=== PATIENT | male | born 1975 | race Caucasian/White ===

== ENCOUNTER → 2016-10-06 | Outpatient (CLI) | payer OTHER ==
--- NOTE | 2016-10-06 15:23 | REP ---
MRI BRAIN WITHOUT AND WITH CONTRAST: HISTORY: Hypogonadism. CONTRAST: ProHance 13 mL. Areas of increased signal intensity on T2-weighted images are present in the periventricular and subcortical white matter. This represents small vessel ischemic disease. There is no intraparenchymal hemorrhage, infarct, mass or midline shift. The ventricular system is normal in appearance. There is no extracerebral collection. The pituitary gland is normal in size and signal intensity. The pituitary gland measures 6.7 mm in height. There is homogeneous enhancement with contrast. The infundibulum is midline. The cavernous sinuses, optic chiasm and hypothalamus are normal in appearance. The visualized sinuses are clear. IMPRESSION: Small vessel ischemic disease. Signed by Gonzalez Perez MD 10/06/2016 03:24 P
== END ==
LOC: M RAD 12:43
PROVIDERS: ATTEND Internal Medicine
DX: E29.1 Testicular hypofunction (principal); I73.9 Peripheral vascular disease, unspecified
CPT/HCPCS: 70553; A9576

== ENCOUNTER → 2021-02-05 | Outpatient (CLI) | payer OTHER ==
--- NOTE | 2021-02-05 16:23 | REPVR ---
PROCEDURE INFORMATION: Exam: MR Thoracic Spine Without Contrast Exam date and time: 02/05/2021 8:30 AM Age: 45 years old Clinical indication: Condition or disease; Disc degneration; Thoracic; Without myelopathy or radiculopathy; Additional info: Ddd TECHNIQUE: Imaging protocol: Multiplanar magnetic resonance images of the thoracic spine without contrast. COMPARISON: No relevant prior studies available. FINDINGS: Vertebrae: No acute abnormality. Alignment is anatomic. Spinal cord: Normal signal. No cord compression. Discs/Spinal canal/Neural foramina: Moderate degenerative changes of the thoracic spine are present. There is no significant spinal canal stenosis. Mild spinal canal stenosis is present at T5-6 and T6-7. Soft tissues: Unremarkable. IMPRESSION: 1. No acute abnormality. 2. Chronic findings as discussed above. Electronically signed by: Jose Alcocer On 02/05/2021 16:22:42 PM
--- NOTE | 2021-02-05 16:28 | REPVR ---
PROCEDURE INFORMATION: Exam: MR Lumbar Spine Without Contrast Exam date and time: 02/05/2021 8:30 AM Age: 45 years old Clinical indication: Lumbago and sciatica; Bilateral; Additional info: Ddd thoracic/lumbar lumbago w/ sciaticia TECHNIQUE: Imaging protocol: Multiplanar magnetic resonance images of the lumbar spine without intravenous contrast. COMPARISON: No relevant prior studies available. FINDINGS: Vertebrae: No acute compression fracture is seen. Bone marrow signal is within normal limits. Spinal cord: The conus medullaris terminates at the inferior L1 level. There is no evidence of arachnoiditis or cauda equina compression. L1-L2: No significant disc disease. No significant spinal stenosis or neural foraminal narrowing. L2-L3: No significant disc disease. No significant spinal stenosis or neural foraminal narrowing. L3-L4: There is shallow broad-based disc bulging and osteophytic ridging in the right neural foramina, right extraforaminal region, and far right lateral space. Similar but less pronounced findings are noted on the left side. There is no significant spinal canal stenosis. Moderate right and mild left neural foraminal narrowing is present. L4-L5: There is mild diffuse circumferential disc bulging and facet arthropathy. This is causing mild/moderate bilateral neural foraminal narrowing. There is no significant spinal canal stenosis. L5-S1: There is moderate diffuse circumferential disc bulging with a left subarticular annular fissure. Moderate facet arthropathy is also present. There is no spinal canal stenosis. Mild bilateral neural foraminal narrowing is present. Soft tissues: Unremarkable. IMPRESSION: 1. No acute abnormality. 2. Chronic findings as discussed above. Electronically signed by: Jose Alcocer On 02/05/2021 16:28:14 PM
== END ==
LOC: M RAD 06:29
PROVIDERS: ATTEND Internal Medicine
DX: M48.04 Spinal stenosis, thoracic region (principal); M54.40 Lumbago with sciatica, unspecified side

== ENCOUNTER → 2023-02-03 | Outpatient (CLI) | payer OTHER | LOC: M PLAIMG 09:06 | PROVIDERS: ATTEND Family Medicine | DX: Z53.9 Procedure and treatment not carried out, unspecified reason (principal); M54.6 Pain in thoracic spine; M54.50 Low back pain, unspecified ==

== ENCOUNTER → 2023-02-06 | Outpatient (CLI) | payer OTHER ==
[2023-02-06 07:56] LABS: BASO % 0.5 % (0.0-1.0); EOS # 0.1 10^3/uL (0.0-0.5); EOS % 1.9 % (0.0-3.0); HEMATOCRIT 50.2 % (42.0-52.0); HEMOGLOBIN 16.8 g/dl (13.5-17.5); LYMPH # 1.8 10^3/uL (1.5-5.0); LYMPH % 30.6 % (24.0-44.0); MEAN CORPUSCULAR HEMOGLOBIN 30.3 pg (27.0-33.0); MEAN CORPUSCULAR HGB CONC 33.5 g/dl (32.0-36.5); MEAN CORPUSCULAR VOLUME 90.5 fl (80.0-96.0); MONO # 0.6 10^3/uL (0.0-0.8); MONO % 9.7 % (2.0-8.0); NEUTROPHILS # 3.3 10^3/uL (1.5-8.5); PLATELET COUNT, AUTOMATED 159 10^3/uL (150-450); RED BLOOD COUNT 5.55 10^6/uL (4.30-6.10); WHITE BLOOD COUNT 5.8 10^3/uL (4.0-10.0)
[2023-02-06 08:15] LABS: ALBUMIN 3.9 G/DL (3.2-5.2); ALKALINE PHOSPHATASE 111 U/L (46-116); ALT/SGPT 44 U/L (7.0-40); AST/SGOT 26 U/L (<34); BILIRUBIN,TOTAL 0.5 MG/DL (0.3-1.2); BLOOD UREA NITROGEN 10 MG/DL (9-23); CALCIUM LEVEL 8.8 MG/DL (8.5-10.1); CARBON DIOXIDE LEVEL 26 MMOL/L (20-31); CHLORIDE LEVEL 108 MMOL/L (98-107); CHOLESTEROL LEVEL 165 MG/DL (<200); CHOLESTEROL RISK RATIO 3.77 (<5); CREATININE FOR GFR 0.95 MG/DL (0.70-1.30); GLOMERULAR FILTRATION RATE > 60.0 (>60); GLUCOSE, FASTING 119 MG/DL (60-100); HDL CHOLESTEROL 43.7 MG/DL (>40); LDL CHOLESTEROL 94.7 MG/DL (<100); NON-HDL-C 121.3 MG/DL; POTASSIUM SERUM 3.9 MMOL/L (3.5-5.1); SODIUM LEVEL 141 MMOL/L (136-145); THYROID STIMULATING HORMONE 1.933 uIU/ML (0.55-4.78); TRIGLYCERIDES LEVEL 133 MG/DL (<150)
[2023-02-06 08:16] LABS: FREE T4 0.77 NG/DL (0.89-1.76); TOTAL 25(OH) VITAMIN D 33.1 NG/ML (20.0-100.0)
[2023-02-06 09:27] LABS: HEMOGLOBIN A1c 5.6 % (4.0-6.0)
== END ==
LOC: M LAB 07:12
PROVIDERS: ATTEND Family Medicine
DX: Z13.220 Encounter for screening for lipoid disorders (principal); Z13.29 Encounter for screening for other suspected endocrine disorder; Z13.0 Encounter for screening for diseases of the blood and blood-forming organs and certain disorders involving the immune mechanism; R73.9 Hyperglycemia, unspecified; E55.9 Vitamin D deficiency, unspecified

== ENCOUNTER → 2023-12-18 | Outpatient (CLI) | payer OTHER ==
[~2023-12-18] MED LIST: JARD1TAB3 PO; ROSU20TA61 PO; SERT-141 PO; TEST200I14 IM; TOPR50TA PO
== END ==
LOC: M RAD 15:59
PROVIDERS: ATTEND Physician Assistant
DX: N50.82 Scrotal pain (principal); I86.1 Scrotal varices; N43.3 Hydrocele, unspecified

== ENCOUNTER → 2024-02-15 | Outpatient (REF) | payer OTHER | LOC: M LAB REF 13:25 | PROVIDERS: ATTEND Physician Assistant | DX: R19.7 Diarrhea, unspecified (principal) ==

== ENCOUNTER → 2024-07-19 | Outpatient (CLI) | payer OTHER ==
[~2024-07-19] MED LIST changes: -ROSU20TA61 PO; +ROSU20TA86 PO
== END ==
LOC: M PLAIMG 10:02
PROVIDERS: ATTEND Physician Assistant
DX: R31.9 Hematuria, unspecified (principal); N20.0 Calculus of kidney

== ENCOUNTER → 2024-08-25 | Outpatient (REF) | payer OTHER ==
[2024-08-25 18:02] LABS: APPEARANCE, URINE HAZY (CLEAR); BACTERIA, URINE AUTO NEGATIVE (NEGATIVE); BILIRUBIN, URINE AUTO NEGATIVE (NEGATIVE); BLOOD, URINE BLOOD 1+ (NEGATIVE); COLOR, URINE YELLOW (YELLOW); GLUCOSE, URINE (UA) AUTO NEGATIVE (NEGATIVE); KETONE, URINE AUTO NEGATIVE (NEGATIVE); LEUKOCYTE ESTERASE, URINE AUTO NEGATIVE (NEGATIVE); MUCUS, URINE SMALL (NEGATIVE); NITRITE, URINE AUTO NEGATIVE (NEGATIVE); PROTEIN, URINE AUTO NEGATIVE (NEGATIVE); RBC, URINE AUTO 3 /HPF (0-3); SQUAMOUS EPITHELIAL CELL UR AU 4 /HPF (0-6); UROBILINOGEN, URINE AUTO 0.2 mg/dL (0.0-2.0); WBC, URINE AUTO 1 /HPF (0-3)
== END ==
LOC: M SMT 17:18
PROVIDERS: ATTEND Physician Assistant
DX: Z87.898 Personal history of other specified conditions (principal)
CPT/HCPCS: 81001; 88108; G0463

== ENCOUNTER → 2025-02-20 | Outpatient (CLI) | payer OTHER | LOC: M RAD 16:50 | PROVIDERS: ATTEND Physician Assistant | DX: N20.0 Calculus of kidney (principal) ==

== ENCOUNTER 2025-03-09 10:57 | Day surgery (SDC) | payer OTHER ==
[~2025-03-09] VITALS: Ht 188 cm; Wt 124.6 kg
[2025-03-09] MEDS ORDERED: LIDOCAINE 2% 100 MG/5 ML SDV (FOR ANES.) As Ordered ONE (11:22)
[2025-03-09] MEDS ORDERED: KETOROLAC 30 MG/ML 1 ML VIAL As Ordered ONE (11:22)
[2025-03-09] MEDS ORDERED: MIDAZOLAM INJ 2 MG/2 ML VIAL As Ordered ONE (11:22)
[2025-03-09] MEDS ORDERED: LR 1,000 ML IV SCH (11:25)
[2025-03-09] MEDS: ceFAZolin SOD 3 GM in DEXTROSE 5% (D5W) MINI-BAG PLU 1... IV ONE (12:00)
[2025-03-09 13:07] VITALS: BP 118/63; TEMP 98.4; O2SAT 95
== END 2025-03-09 13:40 | disposition home or self-care (01) ==
LOC: M SDC 10:57
PROVIDERS: ATTEND Urology
DX: N20.0 Calculus of kidney (principal); E11.9 Type 2 diabetes mellitus without complications; E78.00 Pure hypercholesterolemia, unspecified; E29.1 Testicular hypofunction; G47.33 Obstructive sleep apnea (adult) (pediatric); Z79.899 Other long term (current) drug therapy; Z79.85 Long-term (current) use of injectable non-insulin antidiabetic drugs; Z90.49 Acquired absence of other specified parts of digestive tract; Z87.891 Personal history of nicotine dependence